=== PATIENT | female | born 1985 | race Caucasian/White ===

== ENCOUNTER 2018-10-26 00:07 | Emergency (ER) | payer SELFPAY ==
[~2018-10-26] VITALS: Ht 170.2 cm; Wt 77.1 kg
[2018-10-26 00:12] VITALS: BP_SYST 149
--- NOTE | 2018-10-26 00:14 | NUR ---
Patient to ER bed 5 to gown for evaluation. Side rails up. Report given to Marichuy WOOD.
--- NOTE | 2018-10-26 00:30 | NUR ---
Patient brought in with complaining of vaginal bleeding and pelvic cramping x 2 days worsening today. Patient states she is passing large clots. Denies any nausea/vomiting or diarrhea. Denies any pain. LMP patient states beginning of September. No other complaints/injuries per patient or as noted. Will continue to monitor.
--- NOTE | 2018-10-26 01:00 | NUR ---
Phleb at bedside for blood draw.
[2018-10-26 01:15] LABS: BASOPHILS # (AUTO) 0.1 K/uL (0.0-0.2); BASOPHILS % (AUTO) 0.6 % (0.0-2.0); EOSINOPHILS # (AUTO) 0.1 K/uL (0.0-0.4); HEMATOCRIT 41.3 % (36-48); HEMOGLOBIN 13.6 g/dL (12.0-16.0); LYMPHOCYTES # (AUTO) 2.9 K/uL (1.0-5.5); LYMPHOCYTES % (AUTO) 25.2 % (20.5-51.5); MEAN CORPUSCULAR HEMOGLOBIN 30 pg (27-31); MEAN CORPUSCULAR HGB CONC 33 % (32-36); MEAN CORPUSCULAR VOLUME 90 fL (79.0-98.0); MONOCYTES # (AUTO) 0.7 K/uL (0.0-1.0); MONOCYTES % (AUTO) 5.7 % (1.7-9.3); NEUTROPHILS # (AUTO) 7.9 K/uL (1.8-7.7); NEUTROPHILS % (AUTO) 67.5 % (40.0-70.0); PLATELET COUNT (AUTO) 293 K/uL (130-430); RED BLOOD CELL COUNT(AUTO) 4.59 MIL/uL (4.2-6.2); RED CELL DISTRIBUTION WIDTH 14.1 % (9.0-15.0); WHITE BLOOD COUNT (AUTO) 11.7 K/uL (4.8-10.8)
--- NOTE | 2018-10-26 01:24 | NUR ---
Urine specimen collected and analyzed in Laboratory. Results pending.
--- NOTE | 2018-10-26 01:25 | NUR ---
Urine HCG done, results POS
[2018-10-26 01:32] LABS: BILIRUBIN,URINE NEGATIVE (NEGATIVE); BLOOD, URINE 2+ (NEGATIVE); CLARITY/URINE CLEAR (CLEAR); COLOR,URINE YELLOW (YELLOW); GLUCOSE,URINE NEGATIVE (NEGATIVE); KETONES,URINE NEGATIVE (NEGATIVE); LEUKOCYTE ESTERASE ,URINE TRACE (NEGATIVE); NITRITE, URINE NEGATIVE (NEGATIVE); PROTEIN URINE NEGATIVE (NEGATIVE); UROBILINOGEN,URINE 0.2 (0.2-1.0)
--- NOTE | 2018-10-26 01:40 | NUR ---
Patient off unit to Ultrasound for pelvic ultrasound.
[2018-10-26 01:41] LABS: BACTERIA,URINE FEW /HPF (None Seen)
--- NOTE | 2018-10-26 01:45 | NUR ---
Patient returned from Ultrasound. VSS
--- NOTE | 2018-10-26 01:48 | NUR ---
ER Dr. Garzon at bedside examining patient.
--- NOTE | 2018-10-26 02:06 | NUR ---
ER Dr. Garzon at bedside re- examining patient.
[2018-10-26 02:28] VITALS: BP_SYST 149
--- NOTE | 2018-10-26 02:28 | NUR ---
Patient given written and verbal discharge instructions and verbalizes understanding. ER MD Garzon discussed with patient the results and treatment provided. Patient in stable condition. ID arm band removed. Rx of Keflex given. Patient educated on pain management and to follow up with PMD. Pain Scale 0/10 Opportunity for questions provided and answered. Medication side effect fact sheet provided.
[2018-10-26] MEDS ORDERED: CEPHALEXIN 500 MG CAPSULE PO ONE (02:30)
== END 2018-10-26 02:28 | disposition home or self-care (01) ==
LOC: SED 00:07
DX: O03.9 Complete or unspecified spontaneous abortion without complication (principal); O23.41 Unspecified infection of urinary tract in pregnancy, first trimester; Z3A.08 8 weeks gestation of pregnancy
CPT/HCPCS: 36415; 76817; 81000-TC; 81025; 84702-TC; 85025; 86900; 86901; 99284